=== PATIENT | male | born 1945 | race Caucasian/White ===

== ENCOUNTER → 2016-03-07 | Outpatient (CLI) | payer OTHER ==
--- NOTE | 2016-03-07 17:55 | US ---
Ultrasound Thyroid History: E04.1, nontoxic single thyroid nodule. Technique: Longitudinal and transverse ultrasound imaging of the thyroid gland. Findings: Right lobe of the thyroid measures 5.8 x 2 x 1.7 cm. Left lobe of the thyroid measures 5. 2 x 1.9 x 1.7 cm. Isthmus thickness is 0.3 cm. In the right lobe midpole region, there is a 1.1- x 1.1- x 0.7-cm solid heterogenous nodule, with pos sible few microcalcifications. In the left lobe lower pole, there are three heterogeneous nodules, with the mid to lower pole partia lly calcified nodule measuring 1.6 x 1.2 x 1 cm. Just inferolaterally, there is a 1.1- x 0.7- x 0.6- cm solid nodule. Inferiorly, there is a 1.4- x 1.3- x 1.2-cm complex heterogeneous nodule. Impressions 1. Multinodular goiter. 2. Recommend ultrasound-guided FNA biopsy of the left lobe mid to lower pole 1.6- x 1.2- x 1-cm part ially calcified heterogeneous suspicious nodule to exclude malignancy. 3. The rest of the nodules can be followed up with ultrasound in six months. Recommendation: FNA biopsy of left lobe 1.6-cm partially calcified nodule. A Follow-Up Required message has been communicated to Evelio Weller MD via the [employer] system on 03/07/2016 17:33, Message ID [id number].
== END ==
LOC: BRMIMAGING 13:36
PROVIDERS: ATTEND Internal Medicine Cardiovascular Disease
DX: E04.2 Nontoxic multinodular goiter (principal)